=== PATIENT | male | born 1960 | race Caucasian/White ===

== ENCOUNTER 2023-12-05 06:11 | Day surgery (SDC) | payer MEDICAID, SELFPAY ==
[2023-12-05] VITALS (12 sets, daily range): BP systolic 123–149; BP diastolic 80–97; PULSE 66–81; RESP 12–23; TEMP 36.6–37.2; O2SAT 93–97; BMI 24.9
[2023-12-05] MEDS: LACTATED RINGERS 1000 ML 1,000 ML 100 ML IV ×2 (06:45→08:54)
--- NOTE | 2023-12-05 07:15 | W.PM.H&PU ---
History & Physical Update History & Physical Update H&P Reviewed and patient assessed: No changes noted
--- NOTE | 2023-12-05 07:16 | PM.GSPRC ---
Operative Note Date of procedure: 12/05/23 Pre-op diagnosis: 1.Small symptomatic left inguinal hernia, small right inguinal hernia, and umbilical hernia. Post-op diagnosis: 1. Small direct right inguinal hernia. 2. Small direct and indirect left inguinal hernia with small cord lipoma. 3. Small umbilical hernia with incarcerated preperitoneal fat. Type of Procedure: 1. Laparoscopic bilateral inguinal hernia repair with mesh. 2. Open umbilical hernia repair without mesh. Indications: 63-year-old male was seen in clinic for evaluation of a left inguinal bulge. Patient noticed the bulge several months prior to his presentation. This was mostly prominent when he was working out/exercising. He did not notice any bulges on the right side. He did not notice any pain initially. On clinical exam with the patient standing up and doing Valsalva there was a small left inguinal hernia palpated and a small right inguinal hernia palpated. Patient was also noted to have an umbilical bulge in the right side of the umbilicus. Given patient's absence of pain, he initially elected to proceed with conservative management. However, patient re-presented to clinic because he noticed left inguinal pain after several hours of driving. Patient wished to proceed with surgical repair. The procedure was discussed in detail. The risks associated procedure including infection, bleeding, injury to pretty peritoneal organs, injury to intra-abdominal organs, and hernia recurrence were all discussed with the patient, and he agreed to proceed. Procedure Description: After discussing the risks and benefits of the procedure, the patient signed informed consent.? The operative site was marked and the patient was brought to the operating room and placed on the operating table in supine position.? Care was taken to pad the patient's pressure points.?? The patient was then intubated by anesthesia.?? The operative site was then prepped and draped in the usual sterile fashion.? A time-out was then performed. An infraumbilical skin incision was made with a scalpel and subcutaneous tissues were dissected with electrocautery. Anterior sheath was incised with electrocautery and rectus muscle was retracted laterally. A 12 mm [employer] dissector system was introduced into the incision and advanced over the posterior sheath. Preperitoneal space was dissected with manually insufflating air under direct visualization. Once the tissues were dissected, the balloon was deflated and removed.? A laparoscopic balloon was placed into preperitoneal space and balloon was inflated. Preperitoneal space was insufflated with air. No bleeding was identified upon examination of preperitoneal space. We then placed two 5 mm ports suprapubically under direct visualization. ? The preperitoneal tissues were bluntly dissected with graspers.? The pubic bone was identified and? cleared from preperitoneal tissue.?We first started on the right side. Inferior epigastrics on the right?side were retracted towards the abdominal wall.?? Spermatic cord? was identified and dissected circumferentially.? This was done bluntly. The direct hernia space was identified.??The peritoneal edge was identified and there was no evidence of indirect inguinal hernia on the right. We then continued with dissection on the left side. The pubic bone was already cleared from preperitoneal tissues. The left inferior epigastrics were retracted towards the abdominal wall. Preperitoneal tissues were dissected around the spermatic cord and peritoneum. There was a small direct hernia identified. There was also a small indirect hernia with peritoneum incarcerated in the inguinal canal. The peritoneum was then dissected away from the spermatic cord bluntly. A small cord lipoma was reduced from the inguinal canal. When adequate space was dissected for mesh placement a left-sided per right tacks mesh was then placed and positioned around the spermatic cord. The mesh was secured in place to the pubic bone and laterally with tacks. Similarly, a right sided Parietex? mesh was used and positioned around the spermatic cord. The mesh was tacked medially and laterally with?tacks.? Additional local anesthetic was injected directly into pre-peritoneal space. ? The space was deflated under direct visualization and mesh appeared to be still lying in a good position. The ports were then removed. Anterior sheath was then closed with a running 0-0 vicryl suture. We then proceeded with an open umbilical hernia repair. The umbilicus was dissected off the anterior fascia with cautery. Subcutaneous fat was dissected off the anterior fascia. The anterior fascial umbilical defect was only 6 mm in size. Preperitoneal fat was dissected away from the anterior fascia and reduced into the preperitoneal space. The anterior fascial defect was then closed with interrupted 0-0 Nurolon sutures. Additional local anesthetic was injected around the umbilicus. The umbilicus was then tacked down to the anterior fascia with interrupted 3-0 Vicryl sutures. The dermis was then closed with interrupted 3-0 Vicryl sutures. Skin was closed with 4-0 monocryl using subcuticular stitch. Steri strips were applied over the laparoscopic?incisions. Steri-Strips and sterile dressings were placed over the umbilicus. ? All counts were correct at the end of the case. Patient tolerated the procedure well and was transferred to PACU without any complications. Findings: Small direct right inguinal hernia, small direct and indirect left inguinal hernia with small cord lipoma. A small umbilical hernia defect was repaired primarily. Anesthesia: [facility] Surgeon: Trisha Goode MD Estimated blood loss (mL): 5 Condition: stable Disposition: PACU
[2023-12-05] MEDS: CEFAZOLIN 2 GM INJ IVP (07:40)
[2023-12-05] MEDS: BUPIVACAINE 0.25% 30 ML INJECTION (08:37)
--- NOTE | 2023-12-05 09:03 | W.ANESCHARGE ---
Anesthesia Charges Start Date/Time Anesthesia Start Date: 12/05/23 Anesthesia Start Time: 07:26 Stop Date/Time Anesthesia Stop Date: 12/05/23 Anesthesia Stop Time: 09:33
--- NOTE | 2023-12-05 09:13 | SUR.OPER ---
Local anesthetic 20 ml in preperitoneal space, 20 ml injected into surgical site
--- NOTE | 2023-12-05 09:39 | W.ANESCHARGE ---
Anesthesia Charges Start Date/Time Anesthesia Start Date: 12/05/23 Anesthesia Start Time: 07:26 Stop Date/Time Anesthesia Stop Date: 12/05/23 Anesthesia Stop Time: 09:33
--- NOTE | 2023-12-05 10:01 | SUR.PHASEI ---
patient met discharge criteria per anesthesia
== END 2023-12-05 11:20 | disposition home or self-care (01) ==
PROVIDERS: PCP Family Medicine; Visit Provider Surgery
PROC: (CPT 49650; principal; 2023-12-05 07:30)
PROC: (CPT 49592; 2023-12-05 07:30)
DX: K40.20 Bilateral inguinal hernia, without obstruction or gangrene, not specified as recurrent (principal); K42.0 Umbilical hernia with obstruction, without gangrene
CPT/HCPCS: 49592; 49650; 00860; C1781; J0665; J0690; J1100; J1170; J1885; J2250; J2405; J2704; J2710; J3010; J7120